=== PATIENT | female | born 1955 | race Caucasian/White ===

== ENCOUNTER 2021-06-24 16:12 | Emergency (ER) | payer OTHER ==
[~2021-06-24] VITALS: Ht 157.5 cm; Wt 72.6 kg
[2021-06-24] MEDS ORDERED: NABUMETONE750 MG PO (19:30)
== END 2021-06-24 20:06 | disposition home or self-care (01) ==
LOC: ER 16:12
DX: M62.838 Other muscle spasm (principal); M54.2 Cervicalgia